=== PATIENT | female | born 1970 | race American Indian/Alaskan Native ===

== ENCOUNTER 2017-05-05 10:37 | Emergency (ER) | payer MEDICAID ==
[2017-05-05] MEDS ORDERED: DECADRON IM STA (15:35)
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
[2017-05-05] MEDS ORDERED: ZOFRAN ODT PO ONE (15:37)
[2017-05-05] MEDS ORDERED: TORADOL IM ONE (15:37)
[2017-05-05] MEDS ORDERED: PERCOCET 5/325 PO ONE (15:37)
[2017-05-05 16:03] LABS: Bilirubin,Urine NEG (Negative); Blood,Urine SM (Negative); Ketones,Urine NEG (Negative); Leukocyte Esterase,Urine NEG (Negative); Mucus,Urine FEW /HPF; Nitrite,Urine NEG (Negative); Protein,Urine <15 mg/dL mg/dL (Negative); WBC,Urine < 1.0 /HPF (0.0-6.0)
--- NOTE | 2017-05-05 18:56 | Cat Scan Report ---
FINAL REPORT PROCEDURE: CT LUMBAR SPINE WO CON TECHNIQUE: Computerized axial tomography of the lumbar spine was performed from T12 to the sacrum without contrast material. HISTORY: midline lumbar pain with tenderness COMPARISON: No prior studies are available for comparison. FINDINGS: The vertebral body heights and alignment are maintained. There is limited evaluation of the disc material, however there likely a posterior disc bulge at L5-S1. No acute fracture or subluxation is seen. There are minimal facet arthritic changes noted at L3-4 and L4-5. IMPRESSION: Mild degenerative disc and facet arthritic changes. No acute fracture is seen
[2017-05-05 19:31] VITALS: BP 135/83
== END 2017-05-05 19:35 | disposition home or self-care (01) ==
LOC: ED 10:37
DX: M51.36 Other intervertebral disc degeneration, lumbar region (principal); G89.29 Other chronic pain; I10 Essential (primary) hypertension; K21.9 Gastro-esophageal reflux disease without esophagitis; G43.909 Migraine, unspecified, not intractable, without status migrainosus; F32.9 Major depressive disorder, single episode, unspecified; Z90.49 Acquired absence of other specified parts of digestive tract
CPT/HCPCS: 72131; 81001; 96372; 99284; J1100; J1885; Q0162

== ENCOUNTER 2019-05-22 09:34 | Emergency (ER) | payer MEDICAID ==
[2019-05-22] MEDS ORDERED: IBUPROFEN 600 MG TAB PO ONE (12:19)
--- NOTE | 2019-05-22 12:26 | Emergency Department Report ---
- General Chief Complaint: Upper Respiratory Infection Stated Complaint: BODY ACHES/HEAD PRESSURE Time Seen by Provider: 05/22/19 12:00 Source: patient Mode of arrival: Ambulatory Limitations: No Limitations - History of Present Illness Initial Comments: 48 yo female c/o cough and congestion runny nose, sinus pressure, and bodyaches x 2 days. Denies chest pain and SOB. She has hx of HTN non-complaint with medication. Denies fever nausea and vomiting. MD Complaint: cough, nasal congestion, sinus pain Onset/Timin -: days(s) Worsens With: nothing Associated Symptoms: myalgias Treatments Prior to Arrival: none - Related Data Home Medications Medication Instructions Recorded Confirmed Last Taken Hydrochlorothiazide 1 tab PO DAILY 01/30/16 01/30/16 02/05/16 22:30 Sertraline [Zoloft] 50 mg PO QDAY 01/30/16 01/30/16 02/05/16 22:30 Previous Rx's Medication Instructions Recorded Last Taken Type Docusate Sodium [Colace] 100 mg PO BID PRN #60 capsule 02/07/16 Unknown Rx Ibuprofen [Motrin] 800 mg PO Q8HR PRN #60 tablet 02/07/16 Unknown Rx Oxycodone HCl/Acetaminophen 1 each PO Q6HR PRN #45 tablet 02/07/16 Unknown Rx [Percocet 7.5/325 mg] traMADoL [Ultram] 50 mg PO Q6HR PRN 5 Days #20 tablet 05/05/17 Unknown Rx methylPREDNISolone [Medrol 4MG 4 mg PO DAILY #1 tab.ds.pk 05/22/19 Unknown Rx DOSEPAK (21 tabs)] Allergies Allergy/AdvReac Type Severity Reaction Status Date / Time No Known Allergies Allergy Verified 05/22/19 09:37 ED Review of Systems ROS: Stated complaint: BODY ACHES/HEAD PRESSURE Other details as noted in HPI Comment: All other systems reviewed and negative Constitutional: chills, malaise, other (cough congestion ) Respiratory: cough Gastrointestinal: denies: abdominal pain, nausea Skin: denies: rash ED Past Medical Hx - Past Medical History Previous Medical History?: Yes Hx Hypertension: Yes Hx Congestive Heart Failure: No Hx Diabetes: No Hx GERD: Yes Hx Liver Disease: No Hx Renal Disease: No Hx Headaches / Migraines: Yes (past hx migraines) Hx Seizures: Yes Hx Psychiatric Treatment: Yes (depression, ptsd) Hx Asthma: No Hx COPD: No - Surgical History Past Surgical History?: Yes Hx Appendectomy: Yes - Social History Smoking Status: Never Smoker Substance Use Type: None - Medications Home Medications: Home Medications Medication Instructions Recorded Confirmed Last Taken Type Hydrochlorothiazide 1 tab PO DAILY 01/30/16 01/30/16 02/05/16 22:30 History Sertraline [Zoloft] 50 mg PO QDAY 01/30/16 01/30/16 02/05/16 22:30 History Docusate Sodium [Colace] 100 mg PO BID PRN #60 capsule 02/07/16 Unknown Rx Ibuprofen [Motrin] 800 mg PO Q8HR PRN #60 tablet 02/07/16 Unknown Rx Oxycodone HCl/Acetaminophen 1 each PO Q6HR PRN #45 tablet 02/07/16 Unknown Rx [Percocet 7.5/325 mg] traMADoL [Ultram] 50 mg PO Q6HR PRN 5 Days #20 tablet 05/05/17 Unknown Rx methylPREDNISolone [Medrol 4MG 4 mg PO DAILY #1 tab.ds.pk 05/22/19 Unknown Rx DOSEPAK (21 tabs)] ED Physical Exam - General Limitations: No Limitations General appearance: alert - Head Head exam: Absent: atraumatic - Eye Eye exam: Present: normal appearance. Absent: scleral icterus, conjunctival injection - ENT ENT exam: Present: normal exam, mucous membranes moist, TM's normal bilaterally - Neck Neck exam: Present: normal inspection. Absent: lymphadenopathy - Respiratory Respiratory exam: Present: normal lung sounds bilaterally. Absent: respiratory distress, wheezes, rales, rhonchi - Cardiovascular Cardiovascular Exam: Present: regular rate, normal heart sounds - GI/Abdominal GI/Abdominal exam: Present: soft - Rectal Rectal exam: Absent: deferred - External exam: Absent: normal external exam - Extremities Exam Extremities exam: Present: normal inspection - Neurological Exam Neurological exam: Present: alert, oriented X3 - Psychiatric Psychiatric exam: Present: normal affect - Skin Skin exam: Present: warm, dry, intact ED Course Vital Signs 05/22/19 05/22/19 05/22/19 09:42 13:33 13:57 Temperature 99.9 F H 100.2 F H Pulse Rate 135 H 135 H 135 H Respiratory 18 18 Rate Blood Pressure 187/120 Blood Pressure 177/124 187/120 [Right] O2 Sat by Pulse 96 97 Oximetry 05/22/19 15:11 Temperature 99.6 F Pulse Rate 116 H Respiratory 14 Rate Blood Pressure Blood Pressure 131/102 [Right] O2 Sat by Pulse 97 Oximetry Critical care attestation.: If time is entered above; I have spent that time in minutes in the direct care of this critically ill patient, excluding procedure time. ED Disposition Clinical Impression: Viral respiratory illness Hypertension Qualifiers: Hypertension type: essential hypertension Qualified Code(s): I10 - Essential (primary) hypertension Rhinitis Qualifiers: Rhinitis type: unspecified Qualified Code(s): J31.0 - Chronic rhinitis Disposition: - TO HOME OR SELFCARE Is pt being admited?: No Does the pt Need Aspirin: No Condition: Stable Instructions: Analgesic/Antihistamine/Decongestant (By mouth), Hypertension (ED) Additional Instructions: Please follow up with your Doctor or [facility] to resume your blood pressure medication. You can also follow up with Dr. Christian[facility] [phone] call to make appointment. Monitor your salt intake. Low sodium diet. Increase oral hydration to at least 8 glasses daily. If no improvement or worsening symptoms follow return to the ER. Prescriptions: methylPREDNISolone [Medrol 4MG DOSEPAK (21 tabs)] 4 mg PO DAILY #1 tab.ds.pk Referrals: PRIMARY CARE, [Primary Care Provider] - 3-5 Days
[2019-05-22] MEDS ORDERED: cloNIDine 0.2 MG TAB PO ONE (13:40)
[2019-05-22 15:13] VITALS: BP 131/102
== END 2019-05-22 15:13 | disposition home or self-care (01) ==
LOC: ED 09:34
DX: J06.9 Acute upper respiratory infection, unspecified (principal); I10 Essential (primary) hypertension; J31.0 Chronic rhinitis; K21.9 Gastro-esophageal reflux disease without esophagitis; F32.9 Major depressive disorder, single episode, unspecified; Z90.49 Acquired absence of other specified parts of digestive tract; Z79.1 Long term (current) use of non-steroidal anti-inflammatories (NSAID); Z79.899 Other long term (current) drug therapy
CPT/HCPCS: 87400; 93005; 93010